=== PATIENT | female | born 1980 | race Asian ===

== ENCOUNTER → 2018-08-29 10:13 | Outpatient (CLI) | payer BC, SELFPAY ==
--- NOTE | 2018-08-29 10:16 | DI.RAD.S_ITS ---
PROCEDURE: XR HAND LT MIN 3V INDICATIONS: left hand comparison film TECHNIQUE: 3 views of the hand(s) acquired. COMPARISON: [facility], CR, XR HAND RT MIN 3V, 08/29/2018, 10:55. FINDINGS: Bones: No fractures or dislocations. Carpal bones are normally aligned. No suspicious bony lesions. The bone mineralization is within normal limits. No significant degenerative changes are evident. No osseous erosions are appreciated Soft tissues: No suspicious soft tissue calcifications. IMPRESSION: Unremarkable radiographs of the left hand. Dictated by: Tyshawn Rodriguez M.D. on 08/29/2018 at 10:22 Approved by: Tyshawn Rodriguez M.D. on 08/29/2018 at 10:24
--- NOTE | 2018-08-29 10:16 | DI.RAD.S_ITS ---
PROCEDURE: XR HAND RT MIN 3V INDICATIONS: right hand pain limited mobility TECHNIQUE: 3 views of the hand(s) acquired. COMPARISON: None. FINDINGS: Bones: No fractures or dislocations. Carpal bones are normally aligned. No suspicious bony lesions. The bone mineralization is within normal limits. No significant degenerative changes are evident. No osseous erosions are appreciated. There may be a very subtle ossific/calcific density that is rounded and well corticated along the ulnar styloid process, which may be related to previous injury. No acute injuries are suspected. Soft tissues: No suspicious soft tissue calcifications. IMPRESSION: Unremarkable right hand radiographs. The need for better characterization utilizing MRI may be determined clinically. Dictated by: Tyshawn Rodriguez M.D. on 08/29/2018 at 10:24 Approved by: Tyshawn Rodriguez M.D. on 08/29/2018 at 10:31
== END ==
PROVIDERS: PCP Obstetrics & Gynecology; Visit Provider Physician Assistant
DX: M79.641 Pain in right hand (principal)
CPT/HCPCS: 73130

== ENCOUNTER → 2020-02-29 14:27 | Outpatient (CLI) | payer BC, SELFPAY ==
[2020-02-29 15:14] LABS: Add Manual Diff / Slide Review NO; Basophils Absolute Auto 100 /uL (0-100); Basophils Percent Auto 0.7 % (0-2); Eosinophils Absolute Auto 300 /uL (0-450); Eosinophils Percent Auto 2.9 % (2-4); Hematocrit 33.4 % (36-46); Hemoglobin 10.2 g/dL (12.0-16.0); Lymphocytes Absolute Auto 2700 /uL (1100-4500); Mean Corpuscular HGB Conc 30.5 % (30-36); Mean Corpuscular Hemoglobin 19.5 PG (26-34); Mean Corpuscular Volume 64.1 fL (80-100); Monocytes Absolute Auto 300 /uL (0-900); Monocytes Percent Auto 3.5 % (3-14); Neutrophils Absolute Auto 6500 /uL (1500-7000); Neutrophils Percent Auto 65.9 % (50-75); Platelet Count 451 X10^3/uL (150-400); Red Blood Cell Count 5.21 X10^6/uL (4.0-5.2); Red Cell Distribution Width 20.2 % (11.6-14.8); White Blood Cell Count 9.9 X10^3/uL (4.5-11.0)
[2020-02-29 15:21] LABS: Hemoglobin A1C% w Est Avg Glu 8.9 % (4.0-6.0)
[2020-02-29 15:34] LABS: Anisocytosis 2+
[2020-02-29 15:35] LABS: Alanine Aminotransferase 55 IU/L (<35); Albumin 4.4 g/dL (3.5-5.0); Albumin Globulin Ratio 1.1 (1.0-2.8); Alkaline Phosphatase 131 U/L (38-126); Aspartate Aminotransferase 50 IU/L (14-36); BUN Creatinine Ratio 15.6 (6-22); Bilirubin Total 0.5 mg/dL (0.2-1.3); Blood Urea Nitrogen 7 mg/dL (7-17); Calcium 9.6 mg/dL (8.4-10.2); Carbon Dioxide 26 mmol/L (22-32); Chloride 101 mmol/L (98-107); Estimated Glomerular Filt Rate > 60.0 mL/min (>60); Globulin 3.9 g/dL (1.7-4.1); Glucose 242 mg/dL (70-100); HEMOLYSIS < 15 (0-50); Potassium 4.4 mmol/L (3.4-5.1); Sodium 138 mmol/L (137-145); Total Protein 8.3 g/dL (6.3-8.2)
== END ==
PROVIDERS: PCP Family Medicine; Referring Provider Family Medicine; Visit Provider Family Medicine
DX: O24.419 Gestational diabetes mellitus in pregnancy, unspecified control (principal); E66.9 Obesity, unspecified
CPT/HCPCS: 36415; 80053; 83036; 85025

== ENCOUNTER → 2020-04-08 12:54 | Outpatient (CLI) | payer BC, SELFPAY ==
--- NOTE | 2020-04-08 14:06 | DIET.PN ---
Diabetes Intake: Initial Assessment Assess: Ms. Aldridge is a 40 YOF referred for type 2 diabetes. She is newly diagnosed; however, she had gestational diabetes with two of her three pregnancies. She was recently placed on metformin 5oo mg BID titrating up q two weeks to 1000 mg BID. She does report some GI complications including nausea, diarrhea, abd cramping and lightheadedness. She admits she does not monitor her blood sugar and consumes rice at nearly every meal as this is a common [place] staple. Since diagnosis she has started exercising again. Labs: Per pt report: a1c: 8.9 Meds: metformin 500 mg BID (titrating up to 1000 BID) Diet: per 24 hr recall: B: bagel w/ cr chz; wheat toast w/ pb; fried rice w/egg, nguyen, avocado L: white rice w/ stew (bok lolly,corn, brussels, meat) D: rice, pro, veg Sn: chips Wt: 196lb Ht: 62in BMI: 35.8 BP: na DX: Altered nutrition related laboratory values related to impaired glucose metabolism, lack of previous exposure to nutrition information as evidenced by pt report, diagnosis of diabetes, previous diet high in refined carbohydrates. Intervention: 1. Completed intake assessment. Discussed barriers to care. 2. Discussed pathophysiology of diabetes. Reviewed A1c and its correlation to blood glucose numbers. Discussed recommended BG ranges. 3. Discussed importance of self-monitoring, how often, and when to check. 4. Reviewed hyper/hypoglycemia and treatment. 5. Reviewed safe disposal of equipment (strip/lancets/insulin needles). 6. Created SMART goals for pt self-care and success. 7. Discussed program curriculum outline and class needs based on individual goals. SMART Goals: 1. Pt would like to lose 20 lbs in the next 3 mo through changes in dietary habits including reading food labels, measuring portions sizes, and exercising 5 days/week. Monitor/Evaluate: Pt will attend full DSME program. Basic Nutrition class scheduled for May 08.
== END ==
PROVIDERS: PCP Family Medicine; Referring Provider Family Medicine; Visit Provider Family Medicine
DX: E11.9 Type 2 diabetes mellitus without complications (principal); E66.9 Obesity, unspecified; R11.0 Nausea; R19.7 Diarrhea, unspecified; Z71.3 Dietary counseling and surveillance; Z68.35 Body mass index [BMI] 35.0-35.9, adult
CPT/HCPCS: G0108

== ENCOUNTER → 2020-05-13 10:00 | Outpatient (CLI) | payer BC, SELFPAY ==
--- NOTE | 2020-05-13 11:50 | DIET.PN ---
Diabetes: Healthy Eating 2 Intervention: Fats effects on glucose, weight, heart disease, cholesterol Sat Vs Unsat Protein- animal and plant based options Low, med, high fat meats Sugar substitutes Sodium Health claims Grocery shopping guidelines Eating away from home Alcohol Sick day guidelines Ketone Testing
== END ==
PROVIDERS: PCP Family Medicine; Referring Provider Family Medicine; Visit Provider Family Medicine
DX: E11.9 Type 2 diabetes mellitus without complications (principal); Z71.3 Dietary counseling and surveillance
CPT/HCPCS: G0109

== ENCOUNTER → 2020-06-09 09:14 | Outpatient (CLI) | payer BC, SELFPAY ==
[2020-06-09 09:58] LABS: Add Manual Diff / Slide Review NO; Basophils Absolute Auto 0 /uL (0-100); Basophils Percent Auto 0.5 % (0-2); Eosinophils Absolute Auto 200 /uL (0-450); Eosinophils Percent Auto 2.8 % (2-4); Hematocrit 35.8 % (36-46); Hemoglobin 11.4 g/dL (12.0-16.0); Lymphocytes Absolute Auto 2100 /uL (1100-4500); Lymphocytes Percent Auto 23.2 % (25-40); Mean Corpuscular HGB Conc 31.8 % (30-36); Mean Corpuscular Hemoglobin 24.2 PG (26-34); Mean Corpuscular Volume 76.3 fL (80-100); Monocytes Absolute Auto 300 /uL (0-900); Monocytes Percent Auto 3.2 % (3-14); Neutrophils Absolute Auto 6300 /uL (1500-7000); Neutrophils Percent Auto 70.3 % (50-75); Platelet Count 381 X10^3/uL (150-400); Red Cell Distribution Width 19.2 % (11.6-14.8)
[2020-06-09 10:08] LABS: Hemoglobin A1C% w Est Avg Glu 8.2 % (4.0-6.0)
[2020-06-09 10:16] LABS: Alanine Aminotransferase 30 IU/L (<35); Albumin 4.1 g/dL (3.5-5.0); Albumin Globulin Ratio 1.1 (1.0-2.8); Alkaline Phosphatase 106 U/L (38-126); Aspartate Aminotransferase 28 IU/L (14-36); BUN Creatinine Ratio 27.8 (6-22); Bilirubin Total 0.4 mg/dL (0.2-1.3); Blood Urea Nitrogen 10 mg/dL (7-17); Calcium 8.8 mg/dL (8.4-10.2); Carbon Dioxide 25 mmol/L (22-32); Chloride 103 mmol/L (98-107); Estimated Glomerular Filt Rate > 60.0 mL/min (>60); Globulin 3.6 g/dL (1.7-4.1); Glucose 188 mg/dL (70-100); HEMOLYSIS 23 (0-50); Potassium 4.2 mmol/L (3.4-5.1); Sodium 135 mmol/L (137-145); Total Protein 7.7 g/dL (6.3-8.2)
[2020-06-09 11:21] LABS: Creatinine Urine Random 217.9 mg/dL
[2020-06-09 11:24] LABS: Microalbumin Urine Random 18.1 mg/dL (0-1.6)
== END ==
PROVIDERS: PCP Family Medicine; Referring Provider Family Medicine; Visit Provider Family Medicine
DX: E11.9 Type 2 diabetes mellitus without complications (principal); D50.9 Iron deficiency anemia, unspecified; R74.01 Elevation of levels of liver transaminase levels
CPT/HCPCS: 36415; 80053; 82043; 82570; 83036; 85025

== ENCOUNTER → 2020-06-10 09:57 | Outpatient (CLI) | payer BC, SELFPAY ==
--- NOTE | 2020-06-10 11:14 | DIET.PN ---
Diabetes: Healthy Eating 1 Intervention: ? Discussed pathophysiology of diabetes and impact of nutrition/diet on blood sugar control.? Discussed fed versus non-fed state.?? ? Reviewed importance of Balance, Variety, and Moderation. ? Discussed the effect of carbohydrates/protein/fat on blood sugar control.? ? Stressed importance of consistent carbohydrate intake at each meal and provided instructions for recommended servings/portions of carbohydrates/protein per meal. Provided educational material. ? Reviewed carbohydrate counting and measuring carbohydrate content via serving sizes and reading nutrition labels.? Provided handouts.?? ? Discussed the difference between simple versus complex carbohydrates and the effect of fiber on blood sugar control.? Discussed various methods to increase fiber content in diet. ? Discussed the plate method for creating more carbohydrate conscious balanced meals. ? Stressed importance of meal timing and not going >4-5 hours between meals. Encouraged adding protein to evening snack to support glucose control overnight. ? Discussed importance of making dietary habits part of lifestyle change.
== END ==
PROVIDERS: PCP Family Medicine; Referring Provider Family Medicine; Visit Provider Family Medicine
DX: E11.9 Type 2 diabetes mellitus without complications (principal); Z71.3 Dietary counseling and surveillance
CPT/HCPCS: G0109

== ENCOUNTER → 2020-09-06 11:38 | Outpatient (CLI) | payer BC, SELFPAY ==
[2020-09-06 12:06] LABS: Add Manual Diff / Slide Review NO; Basophils Absolute Auto 100 /uL (0-100); Basophils Percent Auto 0.6 % (0-2); Eosinophils Absolute Auto 200 /uL (0-450); Eosinophils Percent Auto 2.1 % (2-4); Hematocrit 39.6 % (36-46); Hemoglobin 12.9 g/dL (12.0-16.0); Lymphocytes Absolute Auto 2300 /uL (1100-4500); Mean Corpuscular HGB Conc 32.6 % (30-36); Mean Corpuscular Hemoglobin 25.9 PG (26-34); Mean Corpuscular Volume 79.4 fL (80-100); Monocytes Absolute Auto 300 /uL (0-900); Monocytes Percent Auto 3.6 % (3-14); Neutrophils Absolute Auto 6500 /uL (1500-7000); Neutrophils Percent Auto 69.7 % (50-75); Platelet Count 371 X10^3/uL (150-400); Red Blood Cell Count 4.98 X10^6/uL (4.0-5.2); Red Cell Distribution Width 14.6 % (11.6-14.8); White Blood Cell Count 9.4 X10^3/uL (4.5-11.0)
[2020-09-06 12:44] LABS: Hemoglobin A1C% w Est Avg Glu 7.5 % (4.0-6.0)
== END ==
PROVIDERS: PCP Family Medicine; Referring Provider Family Medicine; Visit Provider Family Medicine
DX: E11.9 Type 2 diabetes mellitus without complications (principal); D50.0 Iron deficiency anemia secondary to blood loss (chronic)
CPT/HCPCS: 36415; 83036; 85025

== ENCOUNTER → 2020-11-17 16:37 | Outpatient (CLI) | payer BC, SELFPAY ==
[2020-11-17 18:18] LABS: Add Manual Diff / Slide Review NO; Basophils Absolute Auto 100 /uL (0-100); Basophils Percent Auto 0.5 % (0-2); Eosinophils Absolute Auto 300 /uL (0-450); Eosinophils Percent Auto 2.9 % (2-4); Hematocrit 36.3 % (36-46); Hemoglobin 12.1 g/dL (12.0-16.0); Lymphocytes Absolute Auto 2900 /uL (1100-4500); Lymphocytes Percent Auto 26.2 % (25-40); Mean Corpuscular HGB Conc 33.2 % (30-36); Mean Corpuscular Hemoglobin 26.3 PG (26-34); Mean Corpuscular Volume 79.1 fL (80-100); Monocytes Absolute Auto 500 /uL (0-900); Monocytes Percent Auto 4.9 % (3-14); Neutrophils Absolute Auto 7200 /uL (1500-7000); Neutrophils Percent Auto 65.5 % (50-75); Platelet Count 426 X10^3/uL (150-400); Red Blood Cell Count 4.59 X10^6/uL (4.0-5.2); Red Cell Distribution Width 14.4 % (11.6-14.8); White Blood Cell Count 10.9 X10^3/uL (4.5-11.0)
[2020-11-17 18:21] LABS: Hemoglobin A1C% w Est Avg Glu 7.4 % (4.0-6.0)
== END ==
PROVIDERS: PCP Family Medicine; Referring Provider Family Medicine; Visit Provider Family Medicine
DX: N92.0 Excessive and frequent menstruation with regular cycle (principal); E11.9 Type 2 diabetes mellitus without complications
CPT/HCPCS: 36415; 83036; 84443; 85025

== ENCOUNTER → 2020-12-02 11:14 | Outpatient (CLI) | payer BC, SELFPAY ==
[2020-12-02 12:58] LABS: COVID19 -Nasal RAPID Negative (Negative)
== END ==
PROVIDERS: PCP Family Medicine; Visit Provider Specialist
DX: Z20.822 Contact with and (suspected) exposure to COVID-19 (principal)
CPT/HCPCS: 87635

== ENCOUNTER 2020-12-02 11:41 | Day surgery (SDC) | payer BC, SELFPAY ==
[2020-11-27 14:47] VITALS: BMI 36.2
[2020-12-02] VITALS (7 sets, daily range): BP systolic 112–139; BP diastolic 73–97; PULSE 70–88; RESP 12–17; TEMP 36.2–37.1; O2SAT 97–100; BMI 36.2
--- NOTE | 2020-12-02 | PATH_ITS ---
[facility] Accession Number: [id number] . 01 Material submitted: . PART A: endocervix - ENDOCERVICAL POLYP PART B: endocervix - ENDOCERVICAL CURETTINGS PART C: endometrium - ENDOMETRIAL CURETTINGS . 02 Diagnosis: A. Endocervical Polyp: Mildly inflamed benign endocervical polyp. Negative for glandular dysplasia or malignancy. . B. Endocervical Curettings: Portions of endometrial tissue with features of breakdown and shedding; negative for glandular hyperplasia, cytologic atypia, or malignancy. Endocervical tissue fragments; negative for glandular dysplasia or malignancy. . C. Endometrial Curettings: Portions of disordered proliferative endometrium with features of shedding; negative for glandular hyperplasia, cytologic atypia, or malignancy. Some endometrial fragments demonstrate prominent vessels, suggestive of polyp, if clinical and imaging studies are concordant. [facility] 12/05/2020 1456 Local . 02 Electronically signed: . Dora Hoffman MD, Pathologist NPI- [id number] . 01 Gross description: . A. Received in formalin and labeled with endometrial polyp consists of a soft tissue fragment with a 0.3 cm in greatest diameter resection margin. The resection margin is inked black and the specimen is bisected. Sectioning reveals purple-clarke, focally hemorrhagic, striated cut surfaces. No distinguishing features are grossly apparent. The specimen is submitted entirely in a single cassette. . Summary of Sections: A1 = Endometrial polyp, bisected, 2 pieces. . B. Received in formalin and labeled with endometrial curettings consists of a 2.4 x 0.7 x 0.3 cm aggregate of yellow-clarke to brown-clarke ragged soft tissue fragments admixed with clotted blood. No distinguishing features are grossly apparent. The specimen is filtered and submitted entirely in a single cassette. . Summary of Sections: B1 = Endometrial curettings, filtered, aggregate. . C. Received in formalin and labeled with endometrial curettings consists of a 3.3 x 2.4 x 0.5 cm aggregate of brown-clarke to cobian-clarke ragged soft tissue fragments admixed with clotted blood. No distinguishing features are grossly apparent. The specimen is filtered and submitted entirely. . Summary of Sections: C1 = Products of conception, largest fragment, 1 piece. C2-C3 = Products of conception, filtered, aggregate. ([id number]) /MRV 12/04/2020 1037 Local . 02 Pathologist provided ICD-10: N92.0, N84.0 . 02 CPT . 563506, 588552, 388462 Performed at: 01 [facility] [address] [place] [address] [id number] MD Sj Montesinos MD Phone: [phone] Performed at: [facility] [address] [place] [address] [id number] MD Liseth Riley MD Phone: [phone]
[2020-12-02] MEDS: LACTATED RINGERS 1,000 ML 100 ML IV (12:11)
--- NOTE | 2020-12-02 12:48 | PM.PREOP ---
Pre-operative Note COVID-19 COVID-19 status: Result pending Result date/Date tested (Pos, Neg/Pending): 12/02/20 Interval Note History & Physical reviewed/Exam performed by Physician: Yes Changes to H&P: No
--- NOTE | 2020-12-02 12:54 | SUR.OPER ---
Lithotomy on padded OR bed, head on pillow, arms secured on padded arm boards at <90 degrees abduction. Legs secured in padded yellow fins stirrups.
[2020-12-02] MEDS: KETOROLAC 30 MG/ML VIAL IV (14:19)
--- NOTE | 2020-12-02 14:20 | PM.OP.1 ---
Operative Date/Time/Diagnoses Date of procedure: 12/02/20 Time of procedure: 14:20 Pre-op diagnosis: Menorrhagia with ultrasound suggestive of large endometrial polyp Post-op diagnosis: same (Polyp was actually endocervical not endometrial) Procedure & Clinicians Procedure: Hysteroscopy, fractional D&C, resection of endocervical polyp Same procedure as scheduled: Yes Indications: Menorrhagia of with what appeared to be a large endometrial polyp by ultrasound but was actually from the endocervix Surgeon: Caitlyn Barbour Click Yes if Unassisted: Yes Anesthesia Type: General Operative Notes Findings: Normal exam under anesthesia. Normal endometrial lining by hysteroscopy. Large endocervical polyp. Closure Type: not applicable Specimen(s): other (Fractional D&C and endocervical polyp) Estimated Blood Loss (mL): 50 Blood products transfused: none Procedure in detail: The patient was brought to the operating room where she underwent general anesthesia. She was placed in low stirrups She was prepped and draped in usual sterile fashion with pulsatile stockings in place and functional, warming in place. Her bladder was drained with in and out catheter. A single-tooth tenaculum was placed on the anterior lip of the cervix and the uterus dilated to #8 Hegar dilator. The hysteroscope was placed into the uterus with a sorbitol solution running and under constant suction. The resecting loop set at 80 W of cutting was used to resect the polyp down to the level of the endocervix. Curettage of the endocervix was performed. An endometrial curettage was performed. The polyp, endometrial and endocervical curettage was sent to pathology. Patient had significant bleeding from the site of the single-tooth tenaculum. A [id number] suture of 0 Vicryl was placed across the bleeding site. The patient went to recovery room in good condition counts of instruments and sponges were correct. The sorbitol solution I=O approximately 1000 mL. Complications: none
--- NOTE | 2020-12-02 14:28 | SUR.PHASEI ---
Pt arrived with patent airway, awoke w/o difficulties. Dr. Barbour spoke with pt at bedside, torodol given per Dr. Bonner. Stable PACU stay. Minimal bleeding per radha pad.
--- NOTE | 2020-12-02 14:34 | SUR.PHASEI ---
Dr. Motley stated no post op CBG due to short case.
[2020-12-02] MEDS: OXYCODONE/ACETAMINOPHEN 5/325 TABLET 1 TAB PO (14:37)
--- NOTE | 2020-12-02 14:45 | SUR.PHASEI ---
Medicated with percocet after applesauce tolerated.
== END 2020-12-02 15:08 | disposition home or self-care (01) ==
PROVIDERS: PCP Family Medicine; Referring Provider Specialist; Visit Provider Specialist
PROC: 0UDB8ZZ Extraction of Endometrium, Via Natural or Artificial Opening Endoscopic (ICD-10-PCS; CPT 58558; principal; 2020-12-02 13:30)
DX: N92.0 Excessive and frequent menstruation with regular cycle (principal); N84.0 Polyp of corpus uteri; J45.20 Mild intermittent asthma, uncomplicated; E11.9 Type 2 diabetes mellitus without complications; E66.9 Obesity, unspecified; Z68.36 Body mass index [BMI] 36.0-36.9, adult
CPT/HCPCS: 58558; 81025; J1100; J1885; J2405; J2704; J3010

== ENCOUNTER → 2021-06-02 09:45 | Outpatient (CLI) | payer BC, SELFPAY ==
[2021-06-02 10:12] LABS: COVID19 -Nasal RAPID POSITIVE (Negative)
== END ==
PROVIDERS: PCP Family Medicine; Visit Provider Nurse Practitioner Family
DX: J02.9 Acute pharyngitis, unspecified (principal); R05.9 Cough, unspecified
CPT/HCPCS: 87635

== ENCOUNTER → 2021-06-24 08:58 | Outpatient (CLI) | payer BC, SELFPAY ==
[2021-06-24 10:33] LABS: Add Manual Diff / Slide Review NO; Basophils Absolute Auto 100 /uL (0-100); Basophils Percent Auto 0.8 % (0-2); Eosinophils Absolute Auto 200 /uL (0-450); Eosinophils Percent Auto 1.8 % (2-4); Hematocrit 32.9 % (36-46); Hemoglobin 10.2 g/dL (12.0-16.0); Lymphocytes Absolute Auto 2300 /uL (1100-4500); Lymphocytes Percent Auto 21.2 % (25-40); Mean Corpuscular HGB Conc 30.8 % (30-36); Mean Corpuscular Hemoglobin 21.8 PG (26-34); Mean Corpuscular Volume 70.7 fL (80-100); Monocytes Absolute Auto 600 /uL (0-900); Monocytes Percent Auto 5.7 % (3-14); Neutrophils Absolute Auto 7600 /uL (1500-7000); Neutrophils Percent Auto 70.5 % (50-75); Platelet Count 538 X10^3/uL (150-400); Red Blood Cell Count 4.66 X10^6/uL (4.0-5.2); Red Cell Distribution Width 16.9 % (11.6-14.8); White Blood Cell Count 10.7 X10^3/uL (4.5-11.0)
[2021-06-24 10:51] LABS: Alanine Aminotransferase 23 IU/L (<35); Albumin 4.5 g/dL (3.5-5.0); Albumin Globulin Ratio 1.2 (1.0-2.8); Alkaline Phosphatase 107 U/L (38-126); Aspartate Aminotransferase 23 IU/L (14-36); BUN Creatinine Ratio 20.9 (6-22); Bilirubin Total 0.5 mg/dL (0.2-1.3); Blood Urea Nitrogen 9 mg/dL (7-17); Calcium 9.5 mg/dL (8.4-10.2); Carbon Dioxide 27 mmol/L (22-32); Chloride 102 mmol/L (98-107); Estimated Glomerular Filt Rate > 60.0 mL/min (>60); Globulin 3.7 g/dL (1.7-4.1); Glucose 182 mg/dL (70-100); HEMOLYSIS < 15 (0-50); Potassium 4.3 mmol/L (3.4-5.1); Sodium 134 mmol/L (137-145); Total Protein 8.2 g/dL (6.3-8.2)
[2021-06-24 13:55] LABS: Hemoglobin A1C% w Est Avg Glu 9.4 % (4.0-6.0)
== END ==
PROVIDERS: PCP Family Medicine; Referring Provider Family Medicine; Visit Provider Family Medicine
DX: N92.1 Excessive and frequent menstruation with irregular cycle (principal); E11.9 Type 2 diabetes mellitus without complications
CPT/HCPCS: 36415; 80053; 83036; 85025

== ENCOUNTER → 2021-07-07 07:04 | Outpatient (CLI) | payer BC, SELFPAY ==
--- NOTE | 2021-07-07 07:05 | DI.US.S_ITS ---
PROCEDURE: US ABDOMEN LIMITED INDICATIONS: RUQ PAIN TECHNIQUE: Real-time focused scanning was performed of the abdomen, with image documentation. COMPARISON: [facility], US, ABDOMEN COMPLETE, 08/20/2013, 1:06. FINDINGS: Liver: Increased echogenicity, compatible hepatic steatosis. No mass is appreciated. Gallbladder: Surgically absent. CBD: 7.2 mm: Pancreas: Not well seen. IMPRESSION: 1. Hepatic steatosis. Dictated by: Korey Patton M.D. on 07/07/2021 at 9:16 Approved by: Korey Patton M.D. on 07/07/2021 at 9:21
== END ==
PROVIDERS: PCP Family Medicine; Referring Provider Family Medicine; Visit Provider Family Medicine
DX: R10.11 Right upper quadrant pain (principal); K76.0 Fatty (change of) liver, not elsewhere classified
CPT/HCPCS: 76705

== ENCOUNTER → 2021-09-30 08:49 | Outpatient (CLI) | payer BC, SELFPAY ==
[2021-09-30 09:08] LABS: Add Manual Diff / Slide Review NO; Basophils Absolute Auto 100 /uL (0-100); Basophils Percent Auto 0.9 % (0-2); Eosinophils Absolute Auto 300 /uL (0-450); Eosinophils Percent Auto 3.1 % (2-4); Hematocrit 38.4 % (36-46); Hemoglobin 12.5 g/dL (12.0-16.0); Lymphocytes Absolute Auto 2400 /uL (1100-4500); Lymphocytes Percent Auto 23.4 % (25-40); Mean Corpuscular HGB Conc 32.4 % (30-36); Mean Corpuscular Hemoglobin 22.2 PG (26-34); Mean Corpuscular Volume 68.5 fL (80-100); Monocytes Absolute Auto 400 /uL (0-900); Monocytes Percent Auto 4.2 % (3-14); Neutrophils Absolute Auto 7000 /uL (1500-7000); Neutrophils Percent Auto 68.4 % (50-75); Platelet Count 421 X10^3/uL (150-400); Red Blood Cell Count 5.61 X10^6/uL (4.0-5.2); Red Cell Distribution Width 20.7 % (11.6-14.8); White Blood Cell Count 10.2 X10^3/uL (4.5-11.0)
[2021-09-30 09:20] LABS: Hemoglobin A1C% w Est Avg Glu 7.2 % (4.0-6.0)
[2021-09-30 09:35] LABS: Microcytosis 1+
[2021-09-30 09:36] LABS: Anisocytosis 2+
[2021-09-30 10:00] LABS: Alanine Aminotransferase 18 IU/L (<35); Albumin 4.5 g/dL (3.5-5.0); Albumin Globulin Ratio 1.2 (1.0-2.8); Alkaline Phosphatase 123 U/L (38-126); Aspartate Aminotransferase 19 IU/L (14-36); Bilirubin Total 0.6 mg/dL (0.2-1.3); Blood Urea Nitrogen 10 mg/dL (7-17); Calcium 9.3 mg/dL (8.4-10.2); Carbon Dioxide 25 mmol/L (22-32); Chloride 102 mmol/L (98-107); Estimated Glomerular Filt Rate > 60 mL/min (>60); Globulin 3.9 g/dL (1.7-4.1); Glucose 150 mg/dL (70-100); HEMOLYSIS < 15 (0-50); Potassium 4.3 mmol/L (3.4-5.1); Sodium 137 mmol/L (137-145); Total Protein 8.4 g/dL (6.3-8.2)
== END ==
PROVIDERS: PCP Family Medicine; Referring Provider Family Medicine; Visit Provider Family Medicine
DX: D50.9 Iron deficiency anemia, unspecified (principal); K76.0 Fatty (change of) liver, not elsewhere classified; E11.9 Type 2 diabetes mellitus without complications
CPT/HCPCS: 36415; 80053; 83036; 85025

== ENCOUNTER → 2021-12-08 12:56 | Outpatient (CLI) | payer BC, SELFPAY ==
--- NOTE | 2021-12-08 16:16 | DIAB.MNT ---
Initial Diabetes Medical Nutrition Therapy Assessment Name: Amy Aldridge Date: 12/08/21 Time: 1p Dx: Type II Diabetes Provider: Katelynn Amy presents today for initial visit for diabetes care. She has seen previous [facility] in [id number]. Denies an FH of DM. PMH GDM in 2018 with last , managed with insulin. Tried Metformin for one month when diagnosed. Experienced nausea and dizziness and d/c. Some stress with recent ADS dx with 4 y/o child. About to start therapy sessions. Tearful today. Other stressors include family illnesses and deaths over the last 4 years. Stress management: going out with on Fridays. 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 h/o anemia with heavy bleeding. Improved recently. Enjoys Dutch foods and desserts. Feels that she is likely eating too much rice and not enough veggies. Has tried brown rice, her family does not like it. , 3 children (two teens and one 4y/o). Diet Recall: 8a wakes 11a: Dutch rice dessert x 1 ; nguyen, egg, hashbrown at [employer] ; one oat pkt sweetened or plain, PBJ on wheat 2-3p: one pkt oats ; 2c rice with pro and veggie 7p: same as lunch or 2c pasta, salad, pro sn: nothing or 1-2c chips (piknik) Beverages: 16oz x 3-4 ; white chocolate mocha rarely (was 2-3 x per week), sweet tea large 2-3x per month Anthropometrics: Ht: 5'2 Wt: 206# last PCP Physical Activity: Stopped exercising when vaginal bleeding began 1.5 year ago. Willing to restart now that the bleeding is managed. No program yet. Thinking twice per week to start. Likes to work out in the morning in group fitness classes. Self-Monitoring Blood Glucose: Elevated FBG sometimes, no meter or log book today. 145mg/dL on average for FBG, highest 170 mg/dL. Higher when eating out and forgetting medication. States she is happy with 116-120mg/dL Diabetes Medications: 10 mg Jardiance 10mg glipizide XR BID Pertinent Labs: HgA1c 7.2% (09/2021) down from 9.4% (05/2021) Past Medical History: (Last Reviewed 10/02/21 @ 10:32 by Magi Pace DO) Asthma Fatty liver Gestational diabetes requiring insulin Gestational hypertension History of gestational diabetes Iron deficiency anemia Obesity (BMI 30.0-34.9) Type 2 diabetes mellitus Nutrition Rx: Plate Method Nutrition Diagnosis: - Excessive CHO intake r/t nutrition food related knowledge deficit aeb diet recall - Predicted inadequate fiber intake r/t limited fruit/veg/whole grain intake aeb diet recall Intervention: This participant was very receptive. Provided appropriate educational handouts. Discussed the following topics: HgA1c, its correlation to blood glucose numbers, and rationale for goal Plate Method, impact of macronutrients on blood sugar Recommended servings for carbohydrates at meals and snacks Heart health nutrition: fiber Water intake recs while taking Jardiance Action of Jardiance in brief Brainstormed appropriate meal plan based on food preferences Role of physical activity Created SMART goals for patient self-care and success. Goals: Aim for 2L water per day Bring BG next visit Gym 1-2 x per week Keep rice and pasta to 1c at meals Try to increase veggies at meals to half the plate Follow-up: MADELIN BINGHAM follow-up in 2-3 weeks Tamia Perera RDN, JODIES Certified Diabetes Care and [employer] P: [phone] Thank you for this referral
== END ==
PROVIDERS: PCP Family Medicine; Referring Provider Family Medicine; Visit Provider Family Medicine
DX: E11.9 Type 2 diabetes mellitus without complications (principal); Z71.3 Dietary counseling and surveillance; Z79.84 Long term (current) use of oral hypoglycemic drugs
CPT/HCPCS: 97802

== ENCOUNTER → 2021-12-30 08:22 | Outpatient (CLI) | payer BC, SELFPAY ==
[2021-12-30 09:39] LABS: Add Manual Diff / Slide Review NO; Basophils Absolute Auto 100 /uL (0-100); Basophils Percent Auto 0.7 % (0-2); Eosinophils Absolute Auto 200 /uL (0-450); Eosinophils Percent Auto 2.9 % (2-4); Hematocrit 39.3 % (36-46); Hemoglobin 12.5 g/dL (12.0-16.0); Lymphocytes Absolute Auto 2000 /uL (1100-4500); Lymphocytes Percent Auto 24.7 % (25-40); Mean Corpuscular HGB Conc 31.8 % (30-36); Mean Corpuscular Hemoglobin 23.9 PG (26-34); Mean Corpuscular Volume 75.3 fL (80-100); Monocytes Absolute Auto 300 /uL (0-900); Monocytes Percent Auto 4.1 % (3-14); Neutrophils Absolute Auto 5500 /uL (1500-7000); Neutrophils Percent Auto 67.6 % (50-75); Platelet Count 441 X10^3/uL (150-400); Red Blood Cell Count 5.22 X10^6/uL (4.0-5.2); Red Cell Distribution Width 17.5 % (11.6-14.8); White Blood Cell Count 8.2 X10^3/uL (4.5-11.0)
--- NOTE | 2022-01-12 17:55 | DIAB.FU ---
Follow-up Diabetes Education Assessment Name: Amy Aldridge Date: 12/30/21 Time: 215-255p Dx: Type II Diabetes Provider: Alyx Reyes presents for Dm follow-up. Reports she is not sleeping well and is experiencing a lot of stress. Considering reducing work. Dreams about work. Continues to help her son manage his new ADS diagnosis. Has been having elevated BP with headaches, 150/110 yesterday with symptoms of headache. Carb portions still high, 2c pasta or 1-1.5c rice. Has increased veggie intake. No current stress management techniques. Physical Activity: Has not returned to the gym yet Self-Monitoring Blood Glucose: All FBG elevated: 190, 179, 180, 148, 154, 160, 143 mg/dL Diabetes Medications: 10 mg Jardiance 10mg glipizide XR BID Pertinent Labs: HgA1c 7.2% (09/2021) , 9.4% (05/2021) Past Medical History: (Last Reviewed 01/01/22 @ 10:02 by Magi Pace DO) Asthma Fatty liver Gestational diabetes requiring insulin Gestational hypertension History of gestational diabetes Iron deficiency anemia Obesity (BMI 30.0-34.9) Type 2 diabetes mellitus Intervention: This participant was very receptive. Provided appropriate educational handouts. Discussed the following topics: Recent blood sugar results Stress management and impact on BG Review of general nutrition recommendations and current intake Physical activity plan and impact on blood sugars Created SMART goals for patient self-care and success. Goals: Aim for 2L water per day - in progress Bring BG next visit- met Gym 1-2 x per week- not met Keep rice and pasta to 1c at meals- 50% met Try to increase veggies at meals to half the plate - met Try breathing exercises for stress management- new walk 30 min 2-3x per week- new Follow-up: MADELIN BINGHAM follow-up in 3-4 weeks Tamia Perera RDN, OTILIA Certified Diabetes Care and [employer] P: [phone] Thank you for this referral
== END ==
PROVIDERS: PCP Family Medicine; Referring Provider Family Medicine; Visit Provider Family Medicine
DX: E11.9 Type 2 diabetes mellitus without complications (principal); D50.9 Iron deficiency anemia, unspecified
CPT/HCPCS: 36415; 83036; 85025; G0108

== ENCOUNTER → 2022-01-27 14:57 | Outpatient (CLI) | payer BC, SELFPAY ==
--- NOTE | 2022-02-10 16:57 | DIAB.MNTFU ---
Follow-up Diabetes Medical Nutrition Therapy Assessment Name: Amy Aldridge Date: 01/27/22 Time: 3-345p Dx: Type II Diabetes Provider: Alyx Amy presents for follow-up visit. Reports she is not taking Jardiance due to cost. Stopped 1.5 weeks ago. Trying to determine how to get a better escoto. Also not taking glipizide as she was under the impression that she should stop taking and replace with Jardiance. States the main concern for money and meds comes from having to buy her son an expensive epipen. Did not tolerate Metformin previously, woke with nausea and bloat. States she is feeling less stress than last visit. By January she will be reducing her work hours. Also, she feels her therapy schedule with her son JOSE RAFAEL is now figured out. Diet Recall: 930-10a: 2 servings of thin crackers or [facility] breakfast or one pkt oatmeal 1p: oatmeal or ~1c rice and porkchop with mushrooms 730p: ~1c rice with veg and pro, no pasta lately 9p: 10 chips with salsa or banana Feels that sometimes she eats fast. Reports cheating on weekends with buffet with family. has cut out white cho coffee. Wants snack ideas. Anthropometrics: Wt: 197.5# Physical Activity: vacation last week, lots of walking. States prior to vacation she was walking 2x per week for 30 min. None since returning home. Self-Monitoring Blood Glucose: No meter or log book today. Reports FBG often 140-150 mg/dL. Diabetes Medications: 10 mg Jardiance-- not taking 10mg glipizide XR BID-- not taking Pertinent Labs: 8.0% up from 7.2% HgA1c Past Medical History: (Last Reviewed 01/01/22 @ 10:02 by Magi Pace DO) Asthma Fatty liver Gestational diabetes requiring insulin Gestational hypertension History of gestational diabetes Iron deficiency anemia Obesity (BMI 30.0-34.9) Type 2 diabetes mellitus Nutrition Rx: Carbohydrates: Meal:45g Snack:15-30g Nutrition Diagnosis: Physical inactivity r/t stage of change since returning from vacation aeb pt report Nutrition and food related knowledge deficit r/t needing additional MNT with T2 dx aeb pt report of needing additional snack ideas and overall nutrition therapy for stage of change Intervention: This participant was very receptive. Provided appropriate educational handouts. Discussed the following topics: Medication review of Rx and potential savings cards for jardiance Plate Method, impact of macronutrients on blood sugar, meal timing, carbohydrate counting, pairing macronutrients and spreading keeping carbs to 1c at meals and measuring to be sure of portion Physical activity plan and progress Stress management and progress Snack ideas (handout provided) Created SMART goals for patient self-care and success. Goals: Try breathing exercises for stress management- met walk 30 min 2-3x per week- in progress Bring BG next visit- new check out Jardiance saving carbs and coupons- new Restart glipizide as rx'd- new Restart walking- new Measure rice portion- new Follow-up: MADELIN BINGHAM follow-up in 3-4 weeks Tamia Perera RDN, OTILIA Certified Diabetes Care and Wealth Management Manager P: [phone] Thank you for this referral
== END ==
PROVIDERS: PCP Family Medicine; Referring Provider Family Medicine; Visit Provider Family Medicine
DX: E11.9 Type 2 diabetes mellitus without complications (principal); Z71.3 Dietary counseling and surveillance
CPT/HCPCS: 97803

== ENCOUNTER → 2022-02-24 11:02 | Outpatient (CLI) | payer BC, SELFPAY ==
--- NOTE | 2022-03-17 17:26 | DIAB.FU ---
Follow-up Diabetes Education Assessment Name: Amy Aldridge Date: 02/24/22 Time: 11:10-11:38a Dx: Type II Diabetes Amy presents for diabetes follow-up. States she has restarted meds since last visit. taking Jardiance and glipizide. Reports she has had trouble getting coverage for SMBG strips for over 2 weeks. Tried calling pharmacy. 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 Hoping this will give her more time to increase physical activity. Has been measuring her carbs and increasing veggie intake. Physical Activity: No program. Busy schedule with kids and work impacting her time to walk or exercise. Self-Monitoring Blood Glucose: None Diabetes Medications: 10 mg Jardiance 10mg glipizide XR BID Pertinent Labs: 8.0% up from 7.2% HgA1c Past Medical History: (Last Reviewed 01/01/22 @ 10:02 by Magi Pace DO) Asthma Fatty liver Gestational diabetes requiring insulin Gestational hypertension History of gestational diabetes Iron deficiency anemia Obesity (BMI 30.0-34.9) Type 2 diabetes mellitus Intervention: This participant was very receptive. Provided appropriate educational handouts. Discussed the following topics: Problem solving SMBG coverage, encouraged her to call insurance for more info Physical activity plan and impact on blood sugars Stress management Created SMART goals for patient self-care and success. Goals: Bring BG next visit- not met check out Jardiance saving carbs and coupons- d/c Restart glipizide as rx'd- met Restart walking- not met Measure rice portion- met Call insurance about SMBG strips- new Start walking in February- Bring BG- new Follow-up: MADELIN BINGHAM follow-up in 4 weeks Tamia Perera RDN, OTILIA Certified Diabetes Care and [employer] Operator P: [phone] Thank you for this referral
== END ==
PROVIDERS: PCP Family Medicine; Referring Provider Family Medicine; Visit Provider Family Medicine
DX: E11.9 Type 2 diabetes mellitus without complications (principal); Z71.3 Dietary counseling and surveillance; Z79.84 Long term (current) use of oral hypoglycemic drugs
CPT/HCPCS: G0108

== ENCOUNTER → 2022-04-02 08:46 | Outpatient (CLI) | payer BC, SELFPAY ==
[2022-04-02 10:00] LABS: Hemoglobin A1C% w Est Avg Glu 7.3 % (4.0-6.0)
[2022-04-02 10:09] LABS: Alanine Aminotransferase 20 IU/L (<35); Albumin 4.3 g/dL (3.5-5.0); Albumin Globulin Ratio 1.2 (1.0-2.8); Alkaline Phosphatase 114 U/L (38-126); Aspartate Aminotransferase 17 IU/L (14-36); BUN Creatinine Ratio 24.4 (6-22); Bilirubin Total 0.3 mg/dL (0.2-1.3); Blood Urea Nitrogen 10 mg/dL (7-17); Calcium 8.9 mg/dL (8.4-10.2); Carbon Dioxide 23 mmol/L (22-32); Chloride 100 mmol/L (98-107); Estimated Glomerular Filt Rate > 60 mL/min (>60); Globulin 3.6 g/dL (1.7-4.1); Glucose 119 mg/dL (70-100); HEMOLYSIS < 15 (0-50); Potassium 4.1 mmol/L (3.4-5.1); Sodium 136 mmol/L (137-145); Total Protein 7.9 g/dL (6.3-8.2)
[2022-04-02 11:21] LABS: Creatinine Urine Random 93.2 mg/dL
[2022-04-02 11:34] LABS: Microalbumi Creatinin Ratio Ur 12.8 ug/mg CR (<30); Microalbumin Urine Random 1.2 mg/dL (0-1.6)
== END ==
PROVIDERS: PCP Family Medicine; Referring Provider Family Medicine; Visit Provider Family Medicine
DX: E11.9 Type 2 diabetes mellitus without complications (principal)
CPT/HCPCS: 36415; 80053; 82043; 82570; 83036

== ENCOUNTER → 2022-06-16 15:27 | Outpatient (CLI) | payer BC, SELFPAY ==
--- NOTE | 2022-06-30 10:15 | DIAB.MNTFU ---
Follow-up Diabetes Medical Nutrition Therapy Assessment Name: Amy Aldridge Date: 06/16/22 Time: 340-430p Dx: Type II Diabetes Amy presents for diabetes follow-up. Reports less polyuria. Was waking 3-4x in a night, now only 1x. Has increased physical activity with going to the gym with . Asking for snack ideas prior to workout. Feels her pants are getting looser. Potentially lost some weight since over the holidays, though weight up compared to previous weights in EMR. Diet recall indicates moderate carb intake early in the day, but higher carb at dinner and after dinner. Dinner portions 1-2c rice or pasta. Anthropometrics: Ht:62 Wt: 203.2# today Physical Activity: Gym 3-4x per week with different classes. Endorse up to 7000 steps per day on workout days. Endorses better sleep since working out. Self-Monitoring Blood Glucose: no log book or meter. Reports FBG often 90-135 and highest BG 150-155mg/dl. States her insurance is now covering SMBG supplies. Diabetes Medications: 10 mg Jardiance 10mg glipizide XR BID Pertinent Labs: HgA1c: 05/2021: 9.4% 09/2021: 7.2% 12/2021: 8% 03/2022: 7.3% Past Medical History: (Last Reviewed 04/11/22 @ 09:58 by Magi Pace DO) Asthma Fatty liver Gestational diabetes requiring insulin Gestational hypertension History of gestational diabetes Iron deficiency anemia Obesity (BMI 30.0-34.9) Type 2 diabetes mellitus Nutrition Rx: Carbohydrates: Meal:45g Snack:15-30g Nutrition Diagnosis: Physical inactivity r/t stage of change since returning from vacation aeb pt report - imrproved Nutrition and food related knowledge deficit r/t needing additional MNT with T2 dx aeb pt report of needing additional snack ideas and overall nutrition therapy for stage of change - in progress Intervention: This participant was very receptive. Provided appropriate educational handouts. Discussed the following topics: Blood sugar review and using glucose savanna tracker CHO portions in the evening: keeping carbs at dinner to 1c, portioning out HS snack S/S of hyperglycemia and improvements in symptoms Physical activity plan and progress Provided snack list for ideas Created SMART goals for patient self-care and success. Goals: Call insurance about SMBG strips- d/c Start walking in February- d/c Bring BG- in progress Continue gym-new Set up and use glucose tracking savanna- new Keep CHo at dinner to 1 c- new Portion snacks- new Follow-up: MADELIN BINGHAM follow-up in 3-4 weeks Tamia Perera RDN, OTILIA Certified Diabetes Care and Pyrometer Temperature Regulator P: [phone] Thank you for this referral
== END ==
PROVIDERS: PCP Family Medicine; Referring Provider Family Medicine; Visit Provider Family Medicine
DX: E11.9 Type 2 diabetes mellitus without complications (principal); Z79.84 Long term (current) use of oral hypoglycemic drugs; Z71.3 Dietary counseling and surveillance
CPT/HCPCS: 97803

== ENCOUNTER → 2022-07-08 06:58 | Outpatient (CLI) | payer BC, SELFPAY ==
[2022-07-08 08:28] LABS: Hemoglobin A1C% w Est Avg Glu 7.2 % (4.0-6.0)
== END ==
PROVIDERS: PCP Family Medicine; Referring Provider Family Medicine; Visit Provider Family Medicine
DX: E11.9 Type 2 diabetes mellitus without complications (principal)
CPT/HCPCS: 36415; 83036

== ENCOUNTER → 2022-07-21 15:29 | Outpatient (CLI) | payer BC, SELFPAY ==
--- NOTE | 2022-07-29 15:26 | DIAB.MNTFU ---
Follow-up Diabetes Medical Nutrition Therapy Assessment Name: Amy Aldridge Date: 07/21/22 Time: 338-4p Dx: Type II Diabetes Amy presents for follow-up Dm visit. Our visit was short today since she had her son with her. Has not started using the BG savanna due to concerns for usage charge.?This is not typical for this savanna however. Endorses similar meals as previous visit with aiming for 1 cup CHO at meals, pro, and veggies, and some meals just pro and veggie. Endorses less HS CHO heavy snacks. Has been using snack list provided last visit, likes aryan and hummus.? Anthropometrics: Wt: 200# last PCP, down 3# from last RD visit. Physical Activity: gym 2-3 days per week normally, but endorses less gym time this week due to managing child's schedule and parent/teacher conferences. Self-Monitoring Blood Glucose: FBG 95-135, mostly in goal. No meter or log for review. Would benefit from using phone savanna to track. Diabetes Medications: 10 mg Jardiance 10mg glipizide XR BID Pertinent Labs: HgA1c continues to trend in a good direction. HgA1c: 05/2021: 9.4% 09/2021: 7.2% 12/2021: 8% 03/2022: 7.3% 06/2022: 7.2% Past Medical History: (Last Reviewed 07/09/22 @ 14:57 by Magi Pace DO) Asthma Fatty liver Gestational diabetes requiring insulin Gestational hypertension History of gestational diabetes Iron deficiency anemia Obesity (BMI 30.0-34.9) Type 2 diabetes mellitus Nutrition Rx: Carbohydrates: Meal:45g Snack:15-30g Nutrition Diagnosis: Nutrition and food related knowledge deficit r/t needing additional MNT with T2 dx aeb pt report of needing additional snack ideas and overall nutrition therapy for stage of change - improved Self monitoring deficit r/t only checking FBG currently aeb pt report - new Intervention: This participant was very receptive. Provided appropriate educational handouts. Discussed the following topics: Success in nutrition choices and snacks Realistic physical activity plan and progress Free glucose tracking apps Created SMART goals for patient self-care and success. Goals: Continue gym-met Set up and use glucose tracking savanna- in progress Keep CHo at dinner to 1 c- met Portion snacks- met Gym 2x per week or more- new Check a few 1-2 hour pc - new Follow-up: MADELIN BINGHAM follow-up in 4 weeks Tamia Perera RDN, OTILIA Certified Diabetes Care and Automotive Generator Repairer P: [phone] Thank you for this referral
== END ==
PROVIDERS: PCP Family Medicine; Referring Provider Family Medicine; Visit Provider Family Medicine
DX: E11.9 Type 2 diabetes mellitus without complications (principal); Z71.3 Dietary counseling and surveillance
CPT/HCPCS: 97803

== ENCOUNTER → 2022-08-27 14:57 | Outpatient (CLI) | payer BC, SELFPAY ==
--- NOTE | 2022-09-15 16:12 | DIAB.MNTFU ---
Follow-up Diabetes Medical Nutrition Therapy Assessment Name: Amy Aldridge Date: 08/27/22 Time: 305-350p Dx: Type II Diabetes Amy presents for DM follow-up. States she has been tracking BG with savanna, as discussed last visit, but her phone is . No log book for review today. See reported trends in BG in SMBG. Also reports working on stress management. Lots of appts for children. Strategies for stress management include gym, going out with friend, venting to [facility] kids therapist. Reports eating out once per week. Been avoiding rice at buffet with family. Choosing mostly protein and veggies. Diet Recall: 10a: half bagel with avocado 1p: 1c rice with veggies and meat 4p: PBJ with nuts 7p 1c rice, veggies and meat sn: nothing or nuts or 1c pop chips Beverages: water, +/-4oz tami juice with 4oz water Anthropometrics: Wt: 200# last PCP, no wt today Physical Activity: gym 2 days per week Self-Monitoring Blood Glucose: FBG 110-130 mg/dl most days, however with poor sleep on weekends sometimes 145-150mg/dl 1-2x per week. Diabetes Medications: 10 mg Jardiance 10mg glipizide XR BID Pertinent Labs: HgA1c continues to trend in a good direction. HgA1c: 05/2021: 9.4% 09/2021: 7.2% 12/2021: 8% 03/2022: 7.3% 06/2022: 7.2% Past Medical History: (Last Reviewed 09/13/22 @ 19:07 by Mei Miguel PA-C) Asthma Fatty liver Gestational diabetes requiring insulin Gestational hypertension History of gestational diabetes Iron deficiency anemia Obesity (BMI 30.0-34.9) Type 2 diabetes mellitus Nutrition Rx: Carbohydrates: Meal:45g Snack:15-30g Nutrition Diagnosis: Self monitoring deficit r/t only checking FBG currently aeb pt report - in progress Intervention: This participant was very receptive. Provided appropriate educational handouts. Discussed the following topics: Blood sugar review and trends. Impact of sleep, stress and hormones on BG Eating out strategies SMBG postprandially Stress management Physical activity plan and progress Created SMART goals for patient self-care and success. Goals: Set up and use glucose tracking savanna- met Gym 2x per week or more- met Check a few 1-2 hour pc - in progress Follow-up: MADELIN BINGHAM follow-up in 4 weeks Tamia Perera RDN, OTILAI Certified Diabetes Care and Marketing Research Intern P: [phone] Thank you for this referral
== END ==
PROVIDERS: PCP Family Medicine; Referring Provider Family Medicine; Visit Provider Family Medicine
DX: E11.9 Type 2 diabetes mellitus without complications (principal); Z79.84 Long term (current) use of oral hypoglycemic drugs; Z71.3 Dietary counseling and surveillance
CPT/HCPCS: 97803

== ENCOUNTER → 2022-10-13 06:57 | Outpatient (CLI) | payer BC, SELFPAY ==
[2022-10-13 08:18] LABS: Add Manual Diff / Slide Review NO; Basophils Absolute Auto 100 /uL (0-100); Basophils Percent Auto 0.5 % (0-2); Eosinophils Absolute Auto 400 /uL (0-450); Eosinophils Percent Auto 4.3 % (2-4); Hematocrit 36.3 % (36-46); Hemoglobin 11.8 g/dL (12.0-16.0); Lymphocytes Absolute Auto 2400 /uL (1100-4500); Lymphocytes Percent Auto 24.5 % (25-40); Mean Corpuscular HGB Conc 32.5 % (30-36); Mean Corpuscular Hemoglobin 26.5 PG (26-34); Mean Corpuscular Volume 81.5 fL (80-100); Monocytes Absolute Auto 500 /uL (0-900); Neutrophils Absolute Auto 6400 /uL (1500-7000); Neutrophils Percent Auto 65.7 % (50-75); Platelet Count 336 X10^3/uL (150-400); Red Blood Cell Count 4.46 X10^6/uL (4.0-5.2); Red Cell Distribution Width 14.7 % (11.6-14.8); White Blood Cell Count 9.8 X10^3/uL (4.5-11.0)
[2022-10-13 08:42] LABS: BUN Creatinine Ratio 34.3 (6-22); Blood Urea Nitrogen 12 mg/dL (7-17); Calcium 8.6 mg/dL (8.4-10.2); Carbon Dioxide 24 mmol/L (22-32); Chloride 103 mmol/L (98-107); Estimated Glomerular Filt Rate > 60 mL/min (>60); Glucose 130 mg/dL (70-100); HEMOLYSIS < 15 (0-50); Potassium 4.3 mmol/L (3.4-5.1); Sodium 135 mmol/L (137-145)
[2022-10-14 07:36] LABS: Labcorp Hemoglobin (Hb) A1c 7.6 % (4.8-5.6)
== END ==
PROVIDERS: PCP Family Medicine; Referring Provider Family Medicine; Visit Provider Family Medicine
DX: E11.9 Type 2 diabetes mellitus without complications (principal); N92.1 Excessive and frequent menstruation with irregular cycle
CPT/HCPCS: 36415; 80048; 83036; 85025

== ENCOUNTER → 2022-11-10 15:42 | Outpatient (CLI) | payer BC, SELFPAY ==
--- NOTE | 2022-11-10 15:43 | DI.US.S_ITS ---
PROCEDURE: US PELVIC COMPLETE INDICATIONS: menorrhagia TECHNIQUE: Real-time scanning was performed of the pelvic organs, with image documentation. Additional endovaginal scanning was necessary due to incomplete visualization of the adnexal and endometrial structures by transabdominal scanning. COMPARISON: [facility], US, US PELVIC COMPLETE, 05/12/2021, 16:24. FINDINGS: Uterus: Uterus is anteverted and normal in size at 7.4 x 4.7 x 5.2 cm. The myometrium is homogeneous. The endometrium measures 14 mm combined thickness. Midline anterior subserosal fibroid measures 2.4 x 2.1 x 0.9 cm Ovaries: The right ovary measures 2.4 x 1.5 x 2.5 cm, with a calculated ovarian volume of 4.2 cc. Left ovary not visualized. There is a 1.3 x 1.8 cm simple cyst noted in the right ovary. Otherwise normal echotexture and vascularity. Other: No pathologic free abdominal or pelvic fluid. IMPRESSION: Subserosal uterine fibroid, 2.4 cm Nonvisualized left ovary Approved by: Lucio Gutierrez M.D. on 11/10/2022 at 18:02
--- NOTE | 2022-11-10 15:43 | DI.MG.S_ITS ---
BILATERAL DIGITAL SCREENING MAMMOGRAM 3D/2D WITH CAD: 11/10/2022 CLINICAL: Routine screening. Baseline exam. No prior exams were available for comparison. Both breasts are heterogeneously dense, which may obscure small masses (category c / 51-75% glandular tissue). Current study was also evaluated with a Computer Aided Detection (CAD) system. No significant masses, calcifications, or other findings are seen in either breast. IMPRESSION: NEGATIVE There is no mammographic evidence of malignancy. A 1 year screening mammogram is recommended. Based on the Tyrer Cuzick model (a risk assessment model) the patient's lifetime risk is 13.7% and her 10 year risk is 1.9%. According to the ACR, ACS, and NCCN guidelines, an annual breast MRI exam along with mammogram is recommended if the patient's lifetime risk is 20% or greater. This exam was interpreted at Station ID: [id number]. NOTE: For mammograms, a report in lay terms will be sent to the patient. Approximately 15% of breast malignancies will not be visualized mammographically. In the management of a palpable breast mass, a negative mammogram must not discourage biopsy of a clinically suspicious lesion. Electronically Signed By: Alex wright/mary:11/11/2022 08:09:18 letter sent: Normal Exam ACR BI-RADS Category 1: Negative 3341F
== END ==
PROVIDERS: Family Provider Family Medicine; PCP Family Medicine; Referring Provider Family Medicine; Visit Provider Family Medicine
DX: Z12.31 Encounter for screening mammogram for malignant neoplasm of breast (principal); N92.1 Excessive and frequent menstruation with irregular cycle; D25.2 Subserosal leiomyoma of uterus; N83.291 Other ovarian cyst, right side
CPT/HCPCS: 76830; 76856; 77063; 77067

== ENCOUNTER → 2022-11-11 16:03 | Outpatient (CLI) | payer BC, SELFPAY ==
--- NOTE | 2022-11-18 14:25 | DIAB.FU ---
Follow-up Diabetes Education Assessment Name: Amy Aldridge Date: 11/11/22 Time: 420-520p Dx: Type II Diabetes Amy is here today interested in CGM starter. She understands that her insurance will not cover a personal CGM but may consider out of pocket purchase if she likes the device. Reports inconsistent sleep recently, which impacts her FBG. Reports increase in wt recently due to reduced phys activity and diet. on keto. States she has a hard time keeping rice to 1c or less at meals. Limited veggies in diet per report. Today her phone is not compatible with either CGM option available. Plans to wear sensor home and use husbands phone. Physical Activity: No gym. Walking 0-2x per week. Self-Monitoring Blood Glucose: FBG 150-180mg/dl. Afternoons 140s mg/dl. Diabetes Medications: 10 mg Jardiance 10mg glipizide XR BID Pertinent Labs: HgA1c continues to trend in a good direction. HgA1c: 05/2021: 9.4% 09/2021: 7.2% 12/2021: 8% 03/2022: 7.3% 06/2022: 7.2% 09/2022: 7.6% Past Medical History: (Last Reviewed 10/18/22 @ 17:02 by Magi Pace DO) Asthma Fatty liver Gestational diabetes requiring insulin Gestational hypertension History of gestational diabetes Iron deficiency anemia Obesity (BMI 30.0-34.9) Type 2 diabetes mellitus Intervention: This participant was very receptive. Provided appropriate educational handouts. Discussed the following topics: Recent blood sugar results and trends Potential for CGM out of pocket, options, set up, phone compatibility Review of general nutrition recommendations and current intake Physical activity plan and impact on blood sugars Created SMART goals for patient self-care and success. Goals: Message RD tomorrow about status of sensor and phone connection Try walking 2x per week Keep rice to 1c Increase veggies at meals Follow-up: MADELIN BINGHAM follow-up ansley Perera RDN, OTILIA Certified Diabetes Care and Pipeliner P: [phone] Thank you for this referral
== END ==
PROVIDERS: Absent Provider Family Medicine; Family Provider Family Medicine; PCP Family Medicine; Referring Provider Family Medicine; Visit Provider Family Medicine
DX: E11.9 Type 2 diabetes mellitus without complications (principal)
CPT/HCPCS: G0108

== ENCOUNTER → 2023-01-17 09:30 | Outpatient (CLI) | payer BC, SELFPAY ==
[2023-01-17 11:07] LABS: Add Manual Diff / Slide Review NO; Basophils Absolute Auto 100 /uL (0-100); Basophils Percent Auto 0.6 % (0-2); Eosinophils Absolute Auto 200 /uL (0-450); Eosinophils Percent Auto 1.8 % (2-4); Hematocrit 38.2 % (36-46); Hemoglobin 12.2 g/dL (12.0-16.0); Lymphocytes Absolute Auto 2400 /uL (1100-4500); Lymphocytes Percent Auto 20.3 % (25-40); Mean Corpuscular Hemoglobin 24.1 PG (26-34); Mean Corpuscular Volume 75.4 fL (80-100); Monocytes Absolute Auto 500 /uL (0-900); Monocytes Percent Auto 3.9 % (3-14); Neutrophils Absolute Auto 8600 /uL (1500-7000); Neutrophils Percent Auto 73.4 % (50-75); Platelet Count 465 X10^3/uL (150-400); Red Blood Cell Count 5.07 X10^6/uL (4.0-5.2); Red Cell Distribution Width 15.9 % (11.6-14.8); White Blood Cell Count 11.7 X10^3/uL (4.5-11.0)
[2023-01-17 11:14] LABS: Hemoglobin A1C% w Est Avg Glu 7.7 % (4.0-6.0)
[2023-01-17 11:23] LABS: Alanine Aminotransferase 28 IU/L (<35); Albumin 4.4 g/dL (3.5-5.0); Albumin Globulin Ratio 1.1 (1.0-2.8); Alkaline Phosphatase 163 U/L (38-126); Aspartate Aminotransferase 23 IU/L (14-36); BUN Creatinine Ratio 22.5 (6-22); Bilirubin Total 0.5 mg/dL (0.2-1.3); Blood Urea Nitrogen 9 mg/dL (7-17); Calcium 9.4 mg/dL (8.4-10.2); Carbon Dioxide 22 mmol/L (22-32); Chloride 100 mmol/L (98-107); Estimated Glomerular Filt Rate > 60 mL/min (>60); Glucose 144 mg/dL (70-100); HEMOLYSIS < 15 (0-50); Potassium 4.3 mmol/L (3.4-5.1); Sodium 135 mmol/L (137-145); Total Protein 8.4 g/dL (6.3-8.2)
== END ==
PROVIDERS: Family Provider Family Medicine; PCP Physician Assistant; Referring Provider Family Medicine; Visit Provider Family Medicine
DX: D50.9 Iron deficiency anemia, unspecified (principal); N92.1 Excessive and frequent menstruation with irregular cycle; E11.9 Type 2 diabetes mellitus without complications; E66.9 Obesity, unspecified
CPT/HCPCS: 36415; 80053; 83036; 85025

== ENCOUNTER 2023-02-28 08:46 | Day surgery (SDC) | payer BC, SELFPAY ==
[2023-02-22 12:42] VITALS: BMI 37.8
[2023-02-28] VITALS (14 sets, daily range): BP systolic 113–167; BP diastolic 73–101; PULSE 77–111; RESP 10–20; TEMP 36.2–36.8; O2SAT 95–99; BMI 37.8
--- NOTE | 2023-02-28 | PATH_ITS ---
[facility] Accession Number: [id number] No. of containers..01 Tissue . 01 Material submitted: . uterus - UTERUS, BILATERAL FALLOPIAN TUBES . 01 Diagnosis: Uterus, Bilateral Fallopian Tubes; Hysterectomy and Bilateral Salpingectomy: Proliferative phase endometrium without significant cytologic atypia, hyperplasia, or malignancy. Negative for adenomyosis, on new accounts banking representative sections examined. Benign leiomyomas, up to 0.4 cm in dimension, intramural location. Benign, bilateral fallopian tubes without pathologic abnormalities. MRV 03/02/2023 1754 Local . 01 Electronically signed: . Derian Ogden MD, Pathologist NPI- [id number] . 01 Gross description: . The specimen is received in formalin labeled with the patient's name, , and uterus, bilateral fallopian tubes, consist of a fragmented uterus (73 grams, 10.2 x 7.7 x 3.5 cm in aggregate), with two detached, unoriented, fimbriated fallopian tubes (5.2 x 0.7 cm and 5.5 x 0.7 cm, respectively), with no cervix or additional adnexa. The serosa is clarke and wrinkled with no evidence of hemorrhage identified. The endometrium is red-brown and velvety, and averages 0.1 cm thick with no lesions grossly identified. The myometrium is pink-clarke and trabecular with multiple small well-circumscribed white whorled nodules ranging from 0.2 to 0.4 cm in greatest dimension with no hemorrhage or necrosis identified. . The longer fallopian tube has violaceous smooth serosa with multiple cystic structures measuring up to 0.8 cm in greatest dimension filled with red-brown serous fluid. Sectioning reveals an unremarkable stellate lumen. The shorter fallopian tube has violaceous smooth serosa with multiple cystic structures measuring up to 0.2 cm in greatest dimension filled with cloudy serous fluid. Sectioning reveals an unremarkable stellate lumen. . Quality Tech sections are submitted as follows: A1: Endometrium. A2: Serosa. A3: Nodules. A4: Longer fallopian tube to include one-half of bisected fimbriae and cross-sections. A5: [place] fallopian tube to include one-half of bisected fimbriae and cross sections. ([id number]) /MRV 03/01/2023 1401 Local . 01 Pathologist provided ICD-10: N92.1 . 01 CPT . 024042 Specimen Comment: A courtesy copy of this report has been sent to [phone] Performed at: 01 [facility] [address] [place] [address], [place], [place] [id number] MD Sj Montesinos MD Phone: [phone]
--- NOTE | 2023-02-28 09:27 | PM.PREOP ---
Pre-operative Note Interval Note History & Physical reviewed/Exam performed by Physician: Yes Changes to H&P: No
[2023-02-28] MEDS: LACTATED RINGERS 1,000 ML 100 ML IV ×2 (09:29→17:22)
[2023-02-28] MEDS: SCOPOLAMINE 1 PATCH TOP (09:29)
[2023-02-28] MEDS: ACETAMINOPHEN IV 1,000 MG/100 ML VIAL 400 MG IV ×2 (09:31→10:18)
[2023-02-28] MEDS: CEFAZOLIN 2 GM/100 ML PREMIX 100 ML IV (09:47)
--- NOTE | 2023-02-28 10:13 | SUR.OPER ---
Lithotomy on padded OR bed. Smallwood Pad Positioner under torso. Head on pillow, arms padded and tucked at sides. Legs secured in padded yellow fins stirrups.
[2023-02-28] MEDS: BUPIVACAINE 0.5% (PF) 30 ML, EPINEPHrine 0.15 MG INJ (10:19)
[2023-02-28] MEDS: ROPIVACAINE 0.2% PF 2 MG/ML 20ML AMP 20 ML INJ (10:56)
[2023-02-28] MEDS: TRANEXAMIC ACID 1,000 MG in SODIUM CHLORIDE 0.9% 100 ML 200 MG IV (11:09)
--- NOTE | 2023-02-28 11:41 | PM.OP.1 ---
Operative Date/Time/Diagnoses Date of procedure: 02/28/23 Time of procedure: 11:41 Pre-op diagnosis: Menorrhagia Post-op diagnosis: same Procedure & Clinicians Procedure: Laparoscopic supracervical hysterectomy with bilateral salpingectomies Same procedure as scheduled: Yes Indications: Menorrhagia Surgeon: Caitlyn Barbour Oil Exploration Engineer: Kristel Moyer Click Yes if Unassisted: No Anesthesia Type: General Operative Notes Findings: Normal ovaries and fallopian tubes. Normal liver edge and gallbladder dome. Uterus with significant adhesions to the anterior abdominal wall and the bladder flap area. Patient with significant bleeding from all sites starting with the single-tooth tenaculum placed on the anterior lip of the cervix. Treated with TXA. Closure Type: primary Specimen(s): other (Uterus above the level of the bladder, bilateral fallopian tubes) Applied: catheter (Katz removed at the end of the case) Estimated Blood Loss (mL): 150 Blood products transfused: none Procedure in detail: Patient is brought to the operating room where she underwent general anesthesia [facility] She was prepped and draped in the usual sterile fashion. A check list was reviewed with the staff in the room prior to beginning of the case. Patient had pulsatile stockings in place and functional. 2 g of Ancef were in prior to beginning of the case.. A Katz catheter was placed. A single-tooth tenaculum was placed on the anterior lip of the cervix and the cervix dilated to a #6 Hegar dilator. The uterine manipulator was placed through the cervix into the uterus with the balloon inflated with 3 mL of air. The area of the umbilical incision and the 5 mm right and left lower quadrant incisions were injected with Marcaine. An incision was made with scalpel. The verries needle was placed into the abdomen and confirmed in the appropriate place with withdrawal on a syringe and then free flow of fluid down through the needle. The abdomen was insufflated with CO2. The needle was removed and a 5 mm trocar placed without difficulty. There did not appear to be any damage is placement of the trocar. The right and left lower quadrant incisions were made with the scalpel and the trochars placed without damage to internal structures. The power CO forceps were used to cauterize along the mesosalpinx followed by the round ligaments on both sides. Sequential bites were taken down the broad ligaments. The adhesions were lysed with the power seal to allow closer placement of the Anastasiia loop to the cervix area. The uterine arteries were cauterized. An incision was made above the level bladder pushing the bladder away from the cervix. The ANASTASIIA loop was placed around the uterus and the uterus was amputated above the level of the bladder. At this point it was obvious that the patient was bleeding significantly from her vagina from the single-tooth tenaculum sites. Patient had oozing from the areas where adhesions were removed. Patient was given TXA at this point to help with the bleeding. Bleeding was controlled with the power seal forceps. The monopolar cautery were used to cauterize in the endocervical canal. A supracervical incision was made and an 11 mm port placed. A 15 mm Endo Catch bag was placed in the abdomen. The uterus, tubes and ovaries were placed in the bag and brought up through the suprapubic port site. The Duglas O was placed. The uterus was hand morselized. The abdomen was reinsufflated and adequate hemostasis was noted. The trochars were removed and the CO2 allowed escape from the abdomen. The fascia layer of the suprapubic site was repaired with 0 Polysorb suture. Skin was closed with 4-0 Monocryl suture at the suprapubic site and the other 3 sites. The patient went to recovery room in good condition. Counts of instruments and sponges were correct. Kristel ROSENBAUM was present throughout the case to assist with holding the camera, retracting, cauterizing and cutting the structures on the left side of the patient, as well as assisting with morselization of the uterus. Complications: none (Significant bleeding suggestive of minor bleeding disorder noted at the time of the surgery.) Post-operative Condition: stable Disposition: observation (In acute care) Plan for aftercare: Patient will be observed for bleeding postoperative. Home in a.m. if stable.
--- NOTE | 2023-02-28 12:28 | SUR.PHASEI ---
1205 - Received to PACU after general anesthesia. Airway patent, self maintained. Report from Michele Diaz RN and Dr Marshall.
[2023-02-28 17:45] LABS: Add Manual Diff / Slide Review NO; Basophils Absolute Auto 0 /uL (0-100); Basophils Percent Auto 0.2 % (0-2); Eosinophils Absolute Auto 0 /uL (0-450); Hematocrit 35.3 % (36-46); Hemoglobin 11.3 g/dL (12.0-16.0); Lymphocytes Absolute Auto 1300 /uL (1100-4500); Lymphocytes Percent Auto 9.1 % (25-40); Mean Corpuscular HGB Conc 32.1 % (30-36); Mean Corpuscular Hemoglobin 23.8 PG (26-34); Monocytes Absolute Auto 100 /uL (0-900); Monocytes Percent Auto 0.9 % (3-14); Neutrophils Absolute Auto 13200 /uL (1500-7000); Neutrophils Percent Auto 89.8 % (50-75); Platelet Count 339 X10^3/uL (150-400); Red Blood Cell Count 4.77 X10^6/uL (4.0-5.2); White Blood Cell Count 14.8 X10^3/uL (4.5-11.0)
[2023-02-28] MEDS: ACETAMINOPHEN 325 MG TABLET 650 MG PO (18:02)
[2023-02-28] MEDS: glipiZIDE 5 MG TABLET 10 MG PO (18:02)
[2023-02-28] MEDS: DOCUSATE 100 MG CAPSULE 200 MG PO (22:00)
[2023-02-28] MEDS: OXYCODONE IR 5 MG TABLET PO (23:08)
[2023-03-01] MEDS: ACETAMINOPHEN 325 MG TABLET 650 MG PO ×2 (00:39→06:30)
[2023-03-01 00:41] VITALS: BP 114/70; PULSE 80; RESP 19; TEMP 36.6; O2SAT 96
[2023-03-01] MEDS: OXYCODONE IR 5 MG TABLET PO (03:28)
[2023-03-01 06:30] VITALS: BP 132/84; PULSE 99; RESP 19; TEMP 36.2; O2SAT 98
[2023-03-01] MEDS: glipiZIDE 5 MG TABLET 10 MG PO (06:30)
[2023-03-01 07:53] VITALS: BP 123/87; PULSE 78; RESP 13; TEMP 36.6; O2SAT 100
[2023-03-01 07:58] VITALS: O2SAT 100
--- NOTE | 2023-03-01 08:00 | P.DS_ITS ---
History of Present Illness History of Present Illness Date Patient Seen: 03/01/23 Time Patient Seen: 08:00 Chief complaint: OPB Narrative: Patient underwent laparoscopic supracervical hysterectomy with bilateral salpingectomy on 02/28/2023. Discharge Providers Provider Discharge Date: 03/01/23 Primary care physician: Magi Pace DO Discharge provider: Caitlyn Barbour MD Summary Hospital Course Discharge Diagnosis: Menorrhagia Hospital Course: Patient underwent a laparoscopic supracervical hysterectomy with bilateral salpingectomy on 02/28/2023. She did well postoperatively. Her pain is under control. She is urinating well. She is eating well. She is passing gas. Status at Discharge Cognitive/behavioral status at discharge: oriented Functional status at discharge: independent ambulation Overall status at discharge: patient is progressing back to baseline Time Spent with Patient Time spent: Less than 30 minutes Exam Vital Signs (past 8 hours): - 03/01/23 00:41 03/01/23 06:30 03/01/23 07:53 Temperature 97.9 F 97.2 F L 97.8 F Pulse Rate 80 99 H 78 Respiratory Rate 19 19 13 Blood Pressure 114/70 132/84 123/87 Pulse Oximetry 96 98 100 Oxygen Flow Rate 0 0 0 Oxygen Delivery Method Room Air Oxygen Flow Rate 0 Narrative Exam Narrative: Abdomen is soft, nontender. Dressings are clean, dry. Band-Aids removed and Steri-Strips left in place. Minimal vaginal bleeding. Extremities without edema and nontender. Objective Labs 02/28/23 17:35 Labs: Laboratory Results - last 24 hr 02/28/23 17:35 WBC 14.8 H RBC 4.77 Hgb 11.3 L Hct 35.3 L MCV 74.0 L MCH 23.8 L MCHC 32.1 RDW 18.0 H Plt Count 339 Neut % (Auto) 89.8 H Lymph % (Auto) 9.1 L [place] % (Auto) 0.9 L Eos % (Auto) 0.0 L Baso % (Auto) 0.2 Neut # (Auto) 12231 H Lymph # (Auto) 1300 [place] # (Auto) 100 Eos # (Auto) 0 Baso # (Auto) 0 PFSH Medical History (Updated 02/22/23 @ 08:18 by Caitlyn Barbour MD) Asthma Fatty liver Gestational diabetes requiring insulin Gestational hypertension History of gestational diabetes Iron deficiency anemia Obesity (BMI 30.0-34.9) Type 2 diabetes mellitus Surgical History (Updated 02/28/23 @ 11:51 by Caitlyn Barbour MD) Anesthesia History of section (12/20/16) History of cholecystectomy (~2013) Family History Father Kidney stones Heart enlargement Mother History of heart disease Sister Mitral valve prolapse PCOS (polycystic ovarian syndrome) Grandfather History of emphysema Grandfather Asthma Social History household members: spouse and children Smoking Status: Never smoker alcohol intake: never eating out: 1-3 times/week Type(s) of exercise: resistance training, advised to exercise at least 150 min/week (moderate intensity aerobic) and advised to perform resistance training at least 2x/week Discharge Assessment & Plan Assessment and Plan Assessment: Postoperative laparoscopic supracervical hysterectomy doing well Plan of Treatment: Patient is discharged home to be followed up in 2 weeks. Patient is to call for bleeding, fever, pain, nausea vomiting, any other concerns. Discharge Plan Discharge Plan Patient Disposition: Home Discharge orders & Medications Discharge Orders: Discharge (Order); Ordered 03/01/23 Ordered By: Caitlyn Barbour Prescriptions: Continued albuterol sulfate 90 mcg/actuation HFA aerosol inhaler 2 puff inhalation Q4-6H PRN (Reason: shortness of breath or wheezing) Qty: 6.7 0RF empagliflozin 25 mg tablet 25 mg PO DAILY Qty: 90 3RF (DME) one touch verio test strips strip See Rx Instructions .Route .MEDSUPPLY Qty: 100 1RF Rx Instructions: test glucose once daily (DME) Glucose Monitor Qty: 1 0RF Rx Instructions: Check blood glucose level each morning while still fasting (DME) lancets [facility] [place] See Rx Instructions .ROUTE .MEDSUPPLY Qty: 50 11RF Rx Instructions: Use to test blood sugar once daily as directed glipizide 10 mg tablet extended release 24hr See Rx Instructions .ROUTE .COMPLEX Qty: 60 0RF Dose Instruction: TAKE 2 TABLETS BY MOUTH DAILY Rx Instructions: TAKE 2 TABLETS BY MOUTH DAILY Ozempic 0.25 mg or 0.5 mg (2 mg/3 mL) pen injector 0.25 mg SUBCUT QWEEK Qty: 3 1RF Rx Instructions: Inject 0.25mg once weekly for 4 weeks. Then increase to 0.5mg weekly for 4 weeks. oxycodone 5 mg tablet 5 mg PO Q4H PRN (Reason: pain) Qty: 20 0RF ibuprofen 400 mg PO ONCE HS Follow up/Referrals: Caitlyn Barbour MD [Physician] - (Patient has appointment 03/14/[address] Mukherjee) Magi Pace DO [Primary Care Provider] - Diet/Activity/Treatments Diet: Regular Activity: No restrictions Skin/Wound/Dressing Care Report to your healthcare provider any signs of infection, such as:: chills, fever, increased pain and unusual redness Dressing: Leave Steri-Strips on for 1 week can get wet just pat dry. In one- week get wet and rub off Visit Report/Discharge Packet Instructions: DI for Hysterectomy, DI for Laparoscopy Stand Alone Forms: Patient Portal/API Discharge Data Primary Care Provider: Magi Pace Attending Provider: Caitlyn Barbour Quality VTE Deep Vein Thrombosis/Pulmonary Embolism Present on Admission: No
[2023-03-01] MEDS: DOCUSATE 100 MG CAPSULE 200 MG PO (08:48)
--- NOTE | 2023-03-01 09:27 | CM.DANOTE ---
DCP Assessment Note: Patient is a 42yo F here following Laparoscopic supracervical hysterectomy with bilateral salpingectomies with Dr. Barbour on 02.28.23 PRICK STITCHER reviewed EMR. Per provider, patient safe to d/c home today with family. PRICK STITCHER entered room and introduced self and role. Patient sitting up in bed and appeared A/Ox4. Patient reports she is IADLs/drives at baseline. Patient lives with spouse and 3 children. Spouse at bedside. Spouse to help support and transport home. Patient denies any needs from CM team at this time. Plan: home with spouse today. CM team will continue to follow as needed. No needs identified at this time. LINDA Perez Discharge Planning/Care Management CM Discharge Assessment Start: 03/01/23 09:26 Freq: Status: Active Protocol: Document 03/01/23 09:26 (Rec: 03/01/23 09:27 [id number]) Discharge Planning Assessment Assigned Structural Analyst LINDA Hall DPOA/Assigned Designee Name Ken (spouse) Contact Information [phone] Advance Directives? No Advance Directives on File No History Provided By Patient,Medical Record Prior Living Arrangements House Household Members spouse,children Comment three children Type of transporation used prior to Drives own vehicle admit Independent with ADL's Yes Is patient alert and oriented? Yes Barriers to Discharge No Discharge Plan Home Transportation Arrangement family in POV Referrals Initiated None needed Whiteboard Updated in Patient Room with Yes name and ext. # of Structural Analyst Review Status In Process Next Review Type Continued Stay Review Pre-Anesthesia Assessment Start: 02/22/23 12:41 Freq: Status: Active Protocol: Document 02/22/23 12:42 AK (Rec: 02/22/23 12:49 AK [id number]) Pre-Anesthesia Assessment Patient Information Reviewed Via Chart Review H&P Completed Within 30 Days Yes: 02/21/23 Primary Care Provider Magi Pace Seen Specialist in Last 12 Months Yes Specialist Seen General surgeon Preferred Language Macedonian Height 157.48 cm Weight 93.894 kg Body Mass Index (BMI) 37.8 Hx Anesthesia Reactions No Hx Family Anesthesia Reaction No Hx Malignant Hyperthermia No Hx Blood Transfusion Reaction No Anesthesia Review Requested No C Application Developer No alcohol intake never Smoking Status Never smoker Substance Use Type does not use CPAP/BIPAP use not prescribed Currently Taking a Beta Jin No Anti-Coagulant Therapy No Cardiac Testing No Hx Pacemaker/ICD No Hx Urinary Self Catheterization No Diabetes Yes HgbA1C 7.7 Date 01/17/23 Presence of External or Internal Medical No Devices Lives With spouse,children Patient Discharge Plan Description Return Home Advance Directives? No
--- NOTE | 2023-03-01 09:52 | PC.NURSE ---
Pt is dressed and ready for discharge home with Spouse. IV has been removed. Went over d/c instructions with Pt and Spouse-no new prescriptions, s/s of infection, recommended increased water intake to prevent constipation or dehydration. May shower. Keep steri strips intact for 1 week. Reviewed stroke education and follow up - Pt denies further questions and is ready to be taken out via w/c by DOSIER OPERATOR to pov with Spouse and all belongings.
== END 2023-03-01 09:56 | disposition home or self-care (01) ==
LOC: OR 08:47 → AC 08:47
PROVIDERS: Family Provider Family Medicine; PCP Family Medicine; Referring Provider Specialist; Visit Provider Specialist
PROC: 0UT94ZL Resection of Uterus, Supracervical, Percutaneous Endoscopic Approach (ICD-10-PCS; CPT 58542; principal; 2023-02-28 10:15)
DX: N92.0 Excessive and frequent menstruation with regular cycle (principal); D25.1 Intramural leiomyoma of uterus; E11.9 Type 2 diabetes mellitus without complications; Z79.84 Long term (current) use of oral hypoglycemic drugs
CPT/HCPCS: 58542; 36415; 82962; 85025; J0131; J0171; J0330; J0690; J1100; J1170; J1885; J2250; J2405; J2704; J2795; J3010; J3490

== ENCOUNTER → 2023-04-30 07:22 | Outpatient (CLI) | payer BC, SELFPAY ==
[2023-02-28 08:56] VITALS: BMI 37.8
== END ==
PROVIDERS: Family Provider Family Medicine; PCP Family Medicine; Visit Provider Nurse Practitioner Family
DX: R30.0 Dysuria (principal); N89.8 Other specified noninflammatory disorders of vagina
CPT/HCPCS: 87077; 87086; 87186; 87210

== ENCOUNTER → 2023-12-21 12:54 | Outpatient (CLI) | payer BC, SELFPAY ==
[2023-02-28 08:56] VITALS: BMI 37.8
--- NOTE | 2023-12-21 | DI.MG.S_ITS ---
BILATERAL DIGITAL SCREENING MAMMOGRAM 3D/2D WITH CAD: 12/21/2023 CLINICAL: Routine screening. Comparison is made to exam dated: 11/10/2022 mammogram - [facility]. Both breasts are heterogeneously dense, which may obscure small masses (category c / 51-75% glandular tissue). Current study was also evaluated with a Computer Aided Detection (CAD) system. No significant masses, calcifications, or other findings are seen in either breast. There has been no significant interval change. IMPRESSION: NEGATIVE There is no mammographic evidence of malignancy. A 1 year screening mammogram is recommended. Based on the Tyrer Cuzick model (a risk assessment model) the patient's lifetime risk is 13.7% and her 10 year risk is 2.1%. According to the ACR, ACS, and NCCN guidelines, an annual breast MRI exam along with mammogram is recommended if the patient's lifetime risk is 20% or greater. This exam was interpreted at Station ID: [id number]. NOTE: For mammograms, a report in lay terms will be sent to the patient. Approximately 15% of breast malignancies will not be visualized mammographically. In the management of a palpable breast mass, a negative mammogram must not discourage biopsy of a clinically suspicious lesion. Electronically Signed By: Javier washington/mary:12/21/2023 14:14:11 letter sent: Normal Exam ACR BI-RADS Category 1: Negative 3341F
== END ==
PROVIDERS: Family Provider Family Medicine; PCP Student in an Organized Health Care Education/Training Program; Referring Provider Student in an Organized Health Care Education/Training Program; Visit Provider Student in an Organized Health Care Education/Training Program
DX: Z12.31 Encounter for screening mammogram for malignant neoplasm of breast (principal); R92.333 Mammographic heterogeneous density, bilateral breasts
CPT/HCPCS: 77063; 77067

== ENCOUNTER → 2024-02-02 09:13 | Outpatient (CLI) | payer BC, SELFPAY ==
[2023-02-28 08:56] VITALS: BMI 37.8
[2024-02-02 10:46] LABS: Hemoglobin A1C% w Est Avg Glu 8.2 % (4.0-6.0)
== END ==
PROVIDERS: Family Provider Family Medicine; PCP Student in an Organized Health Care Education/Training Program; Referring Provider Student in an Organized Health Care Education/Training Program; Visit Provider Student in an Organized Health Care Education/Training Program
DX: E11.9 Type 2 diabetes mellitus without complications (principal)
CPT/HCPCS: 36415; 83036

== ENCOUNTER → 2024-05-12 10:38 | Outpatient (CLI) | payer BC, SELFPAY ==
[2023-02-28 08:56] VITALS: BMI 37.8
[2024-05-12 11:25] LABS: Add Manual Diff / Slide Review NO; Basophils Absolute Auto 100 /uL (0-100); Basophils Percent Auto 0.9 % (0-2); Eosinophils Absolute Auto 200 /uL (0-450); Eosinophils Percent Auto 2.2 % (2-4); Hematocrit 43.7 % (36-46); Hemoglobin 14.6 g/dL (12.0-16.0); Lymphocytes Absolute Auto 3200 /uL (1100-4500); Mean Corpuscular HGB Conc 33.4 % (30-36); Mean Corpuscular Hemoglobin 27.7 PG (26-34); Mean Corpuscular Volume 83.2 fL (80-100); Monocytes Absolute Auto 500 /uL (0-900); Monocytes Percent Auto 4.5 % (3-14); Neutrophils Absolute Auto 6400 /uL (1500-7000); Neutrophils Percent Auto 61.4 % (50-75); Platelet Count 413 X10^3/uL (150-400); Red Blood Cell Count 5.26 X10^6/uL (4.0-5.2); Red Cell Distribution Width 13.7 % (11.6-14.8); White Blood Cell Count 10.5 X10^3/uL (4.5-11.0)
[2024-05-12 11:32] LABS: Creatinine Urine Random 254.54 mg/dL
[2024-05-12 11:40] LABS: Hemoglobin A1C% w Est Avg Glu 7.9 % (4.0-6.0)
[2024-05-12 11:45] LABS: Alanine Aminotransferase 29 IU/L (<35); Albumin 4.5 g/dL (3.5-5.0); Albumin Globulin Ratio 1.3 (1.0-2.8); Alkaline Phosphatase 130 U/L (38-126); Aspartate Aminotransferase 22 IU/L (14-36); BUN Creatinine Ratio 26.5 (6-22); Bilirubin Total 0.6 mg/dL (0.2-1.3); Blood Urea Nitrogen 13 mg/dL (7-17); Calcium 9.9 mg/dL (8.4-10.2); Carbon Dioxide 25 mmol/L (22-32); Chloride 99 mmol/L (98-107); Cholesterol 250 mg/dL (140-199); Estimated Glomerular Filt Rate > 60 mL/min (>60); Globulin 3.5 g/dL (1.7-4.1); Glucose 166 mg/dL (70-100); HDL Cholesterol 59 mg/dL (40-60); HEMOLYSIS < 15 (0-50); LDL Cholesterol Calculated 149 mg/dL (<100); Potassium 4.6 mmol/L (3.4-5.1); Sodium 135 mmol/L (137-145); Triglycerides 211 mg/dL (35-150)
== END ==
PROVIDERS: Family Provider Family Medicine; PCP Student in an Organized Health Care Education/Training Program; Referring Provider Student in an Organized Health Care Education/Training Program; Visit Provider Student in an Organized Health Care Education/Training Program
DX: E11.9 Type 2 diabetes mellitus without complications (principal); E66.9 Obesity, unspecified
CPT/HCPCS: 36415; 80053; 80061; 82043; 82570; 83036; 85025

== ENCOUNTER → 2024-07-25 09:53 | Outpatient (CLI) | payer BC, SELFPAY ==
[2023-02-28 08:56] VITALS: BMI 37.8
[2024-07-25 11:08] LABS: Cholesterol 153 mg/dL (140-199); HDL Cholesterol 43 mg/dL (40-60); LDL Cholesterol Calculated 88 mg/dL (<100); Triglycerides 111 mg/dL (35-150)
== END ==
LOC: LAB 09:54
PROVIDERS: Family Provider Family Medicine; PCP Student in an Organized Health Care Education/Training Program; Referring Provider Student in an Organized Health Care Education/Training Program; Visit Provider Student in an Organized Health Care Education/Training Program
DX: E78.5 Hyperlipidemia, unspecified (principal)
CPT/HCPCS: 36415; 80061

== ENCOUNTER → 2024-10-31 10:11 | Outpatient (CLI) | payer BC, SELFPAY ==
[2023-02-28 08:56] VITALS: BMI 37.8
--- NOTE | 2024-10-31 10:14 | DI.RAD.S_ITS ---
PROCEDURE: XR CHEST 2V INDICATIONS: Cough TECHNIQUE: 2 views of the chest were acquired. COMPARISON: None. FINDINGS: Heart, mediastinum and pulmonary vascular: Heart is normal in size and configuration. Mediastinum is unremarkable. Pulmonary vascular is normal. Lungs: Clear Pleural spaces: Normal-no effusions or pneumothorax. Bones and soft tissues: Normal IMPRESSION: Normal chest. Dictated by: Kvng Camargo M.D. on 11/01/2024 at 12:48 Approved by: Kvng Camargo M.D. on 11/01/2024 at 12:48
== END ==
LOC: RAD 10:13
PROVIDERS: Family Provider Family Medicine; PCP Student in an Organized Health Care Education/Training Program; Referring Provider Nurse Practitioner Family; Visit Provider Nurse Practitioner Family
DX: R05.9 Cough, unspecified (principal)
CPT/HCPCS: 71046

== ENCOUNTER → 2025-04-16 13:36 | Outpatient (CLI) | payer BC, SELFPAY ==
[2023-02-28 08:56] VITALS: BMI 37.8
== END ==
LOC: LAB 13:36
PROVIDERS: Family Provider Family Medicine; PCP Student in an Organized Health Care Education/Training Program; Visit Provider Chiropractor
DX: J02.9 Acute pharyngitis, unspecified (principal)
CPT/HCPCS: 87070

== ENCOUNTER → 2025-04-23 17:09 | Outpatient (CLI) | payer BC, SELFPAY ==
[2023-02-28 08:56] VITALS: BMI 37.8
--- NOTE | 2025-04-23 17:11 | DI.MG.S_ITS ---
MM screening mammo BI: 04/23/2025. BI-RADS: 1 CLINICAL: 45-year old female for bilateral screening mammogram. Tyrer-Cuzick lifetime risk of 8.7%. No personal or first-degree family history of breast cancer. PRIOR EXAMS 12/21/2023, 11/10/2022. MAMMOGRAPHY TECHNIQUE: 2D and 3D (tomosynthesis) digital mammographic views obtained, with additional images as needed for full coverage. Current study was also evaluated with a Computer Aided Detection (CAD) system. DENSITY C. The breasts are heterogeneously dense, which may obscure small masses. MAMMOGRAPHY FINDINGS Bilateral: No suspicious mass, asymmetry, microcalcification, or other abnormality seen. IMPRESSION: * No evidence of malignancy. RECOMMENDATIONS Bilateral * Annual screening mammography. OVERALL ASSESSMENT CATEGORY BI-RADS-1: Negative. The [employer] recommends annual screening mammography beginning at age 40 for women with average risk of breast cancer. ELECTRONICALLY SIGNED: Zaki Bruce M.D. on 04/24/2025 at 11:25:20 AM PT Interpreting Station ID: [id number]
== END ==
LOC: MAMMO 17:09
PROVIDERS: Family Provider Family Medicine; PCP Student in an Organized Health Care Education/Training Program; Referring Provider Student in an Organized Health Care Education/Training Program; Visit Provider Student in an Organized Health Care Education/Training Program
DX: Z12.31 Encounter for screening mammogram for malignant neoplasm of breast (principal); R92.333 Mammographic heterogeneous density, bilateral breasts
CPT/HCPCS: 77063; 77067